=== PATIENT | female | born 1975 | race Caucasian/White ===

== ENCOUNTER → 2017-11-06 09:02 | Outpatient (CLI) | payer OTHER, SELFPAY ==
[2017-11-09 13:31] LABS: HPV Reflexed? NOT INDICATED
== END ==
PROVIDERS: Visit Provider Obstetrics & Gynecology
DX: Z12.4 Encounter for screening for malignant neoplasm of cervix (principal)
CPT/HCPCS: 88175; G0145

== ENCOUNTER → 2017-11-09 06:56 | Outpatient (CLI) | payer OTHER, SELFPAY ==
--- NOTE | 2017-11-09 07:01 | BI_ITS ---
MAMMOGRAPHY - BILATERAL SCREENING REASON FOR EXAM: Female, 42 years old. Routine annual screening examination. PERTINENT HISTORY: Non-contributory. TECHNIQUE: Digital bilateral breast sukhjinder (3D mammographic acquisition) in the CC and MLO projections. 2-D mediolateral oblique (MLO) and craniocaudad (CC) views of both breasts were obtained. CAD: Full Field Digital Mammography with Computer Added Detection was performed. COMPARISON: Oct 05 2016 3:40pm . Sep 30 2015 4:12pm FINDINGS: Breast Composition: The breasts are heterogeneously dense, which may obscure small masses. There are no dominant masses or suspicious calcifications. No other significant abnormalities are identified. BI/SCREENING MAMM (CAD), BILAT IMPRESSION: Stable bilateral screening mammogram. Yearly follow-up mammogram recommended. (A) ASSESSMENT CATEGORY: BIRADS Category 2: Benign. A letter regarding these results will be sent to the patient by the facility within 30 days. Approximately 10% of breast cancers are not detected by mammography. A normal mammogram should not delay biopsy of a clinically suspicious abnormality. [id number] Electronically Signed: Stephie Calderon MD at 15:22 EDT Tel , Service support ,
== END ==
PROVIDERS: Family Provider Family Medicine; PCP Family Medicine; Referring Provider Obstetrics & Gynecology; Visit Provider Obstetrics & Gynecology
DX: Z12.31 Encounter for screening mammogram for malignant neoplasm of breast (principal)
CPT/HCPCS: 77063; 77067

== ENCOUNTER → 2018-11-12 15:29 | Outpatient (CLI) | payer OTHER, SELFPAY ==
--- NOTE | 2018-11-12 15:36 | BI_ITS ---
MAMMOGRAPHY - BILATERAL SCREENING 3-D TOMOSYNTHESIS REASON FOR EXAM: Female, 43 years old. Screening PERTINENT HISTORY: No significant family history. BILATERAL DIGITAL MAMMOGRAM WITH TOMOSYNTHESIS: Mediolateraloblique and craniocaudal views demonstrate no evidence of dominant parenchymal masses. No cluster of microcalcifications or architectural distortion is seen. No evidence of skin thickening is identified There has been no significant change since 11/09/2017 . Breast Density: The breast tissue is heterogeneously dense, which may obscure small masses. CAD was used to assist in final assessment. IMPRESSION: NORMAL MAMMOGRAM BILATERALLY. FINAL ASSESSMENT: BIRAD 1 (NEGATIVE) YEARLY MAMMOGRAM RECOMMENDED Approximately 10% of breast cancers are not detected by mammography. A normal mammogram should not delay biopsy of a clinically suspicious abnormality. Electronically Signed: Siddharth Willis, at 7:52 EDT Tel , Service support , BI/SCREEN MAMM (CAD) W/SANIA VANG
== END ==
PROVIDERS: Family Provider Family Medicine; PCP Family Medicine; Referring Provider Obstetrics & Gynecology; Visit Provider Obstetrics & Gynecology
DX: Z12.31 Encounter for screening mammogram for malignant neoplasm of breast (principal)
CPT/HCPCS: 77063; 77067

== ENCOUNTER → 2019-10-21 06:56 | Outpatient (CLI) | payer OTHER, SELFPAY ==
[2019-10-21 08:35] LABS: T4 Free Direct 0.92 ng/dL (0.76-1.46); Thyroid Stim Hormone (TSH) 3.16 uIU/mL (0.358-3.74)
[2019-10-21 08:52] LABS: Absolute Lymphocyte Count 1.26 X10^3/uL (0.83-4.51); Absolute Neutrophil Count 2.5 X10^3/uL (2.0-7.7); Basophil# 0.03 X10^3/uL; Basophil% 0.7 % (0-1); Eosinophil# 0.17 X10^3/uL; Eosinophils% 3.9 % (0-5); Hematocrit 41.1 % (37-47); Hemoglobin 13.5 g/dL (12.0-15.0); Lymphocyte # 1.26 X10^3/ul (4.0); Lymphocyte % 28.8 % (19-41); Mean Corp Hgb Conc 32.8 g/dL (32-36); Mean Corpuscular Hgb 29.8 pg (27.0-32.0); Mean Corpuscular Volume 90.7 fL (81-99); Monocyte# 0.39 X10^3/uL; Monocyte% 8.9 % (0-10); NRBC Flagged by Analyzer 0 % (0-5); Neutrophil % 57.2 % (47-70); Platelet Count 220 K/mm3 (150-450); RBC Distribution Width CV 12.4 % (11.6-14.6); RBC Distribution Width SD 40.9 fl (35.1-43.9); Red Blood Count 4.53 M/mm3 (4.2-5.4); White Blood Count 4.4 K/mm3 (4.4-11.0)
== END ==
PROVIDERS: PCP Family Medicine; Referring Provider Family Medicine; Visit Provider Family Medicine
DX: R53.83 Other fatigue (principal)
CPT/HCPCS: 36415; 84439; 84443; 85025

== ENCOUNTER 2019-10-23 14:06 | Outpatient (RCR) | payer OTHER, SELFPAY | END 2019-11-06 23:59 | LOC: EMPH 14:06 | PROVIDERS: PCP Family Medicine; Visit Provider Family Medicine Geriatric Medicine | DX: Z11.59 Encounter for screening for other viral diseases (principal) | CPT/HCPCS: 87635; U0003 ==

== ENCOUNTER 2019-12-05 10:56 | Outpatient (RCR) | payer OTHER, SELFPAY ==
[2019-11-21 09:21] VITALS: BMI 29.2
== END 2019-12-07 23:59 ==
LOC: EMPH 10:56
PROVIDERS: PCP Family Medicine; Visit Provider Family Medicine Geriatric Medicine
DX: Z03.818 Encounter for observation for suspected exposure to other biological agents ruled out (principal)
CPT/HCPCS: 87426

== ENCOUNTER → 2019-12-10 07:09 | Outpatient (CLI) | payer OTHER, SELFPAY ==
[2019-11-21 09:21] VITALS: BMI 29.2
--- NOTE | 2019-12-10 07:11 | BI_ITS ---
MAMMOGRAPHY - BILATERAL SCREENING REASON FOR EXAM: Female, 44 years old. Routine annual screening examination. PERTINENT HISTORY: Sister with breast cancer. TECHNIQUE: Digital bilateral breast sania (3D mammographic acquisition) in the CC and MLO projections. 2-D mediolateral oblique (MLO) and craniocaudad (CC) views of both breasts were obtained. CAD: Full Field Digital Mammography with Computer Added Detection was performed. COMPARISON: Comparison is made with prior study dated 11/12/2018 and 11/09/2017. FINDINGS: Breast Composition: The breasts are heterogeneously dense, which may obscure small masses. There are no dominant masses or suspicious calcifications. Stable benign appearing bilateral axillary lymph nodes. No other significant abnormalities are identified. There has been no significant change since the prior study. BI/SCREEN MAMM (CAD) W/SANIA BILAT IMPRESSION: Stable bilateral screening mammogram. Yearly follow-up mammogram recommended. (A) ASSESSMENT CATEGORY: BIRADS Category 2: Benign. A letter regarding these results will be sent to the patient by the facility within 30 days. Approximately 10% of breast cancers are not detected by mammography. A normal mammogram should not delay biopsy of a clinically suspicious abnormality. [id number] Electronically Signed: Brandon Dominguez, at 8:42 EST , Service support ,
== END ==
PROVIDERS: PCP Family Medicine; Referring Provider Student in an Organized Health Care Education/Training Program; Visit Provider Student in an Organized Health Care Education/Training Program
DX: Z12.31 Encounter for screening mammogram for malignant neoplasm of breast (principal)
CPT/HCPCS: 77063; 77067

== ENCOUNTER 2020-01-01 10:05 | Outpatient (RCR) | payer OTHER, SELFPAY ==
[2019-11-21 09:21] VITALS: BMI 29.2
== END 2020-01-06 23:59 ==
LOC: EMPH 10:05
PROVIDERS: PCP Family Medicine; Visit Provider Family Medicine Geriatric Medicine
DX: Z03.818 Encounter for observation for suspected exposure to other biological agents ruled out (principal)
CPT/HCPCS: 87426

== ENCOUNTER 2020-02-05 14:12 | Outpatient (RCR) | payer OTHER, SELFPAY ==
[2019-11-21 09:21] VITALS: BMI 29.2
== END 2020-02-06 23:59 ==
LOC: EMPH 14:12
PROVIDERS: PCP Family Medicine; Referring Provider Family Medicine Geriatric Medicine; Visit Provider Family Medicine Geriatric Medicine
DX: Z03.818 Encounter for observation for suspected exposure to other biological agents ruled out (principal)
CPT/HCPCS: 87426

== ENCOUNTER 2020-03-06 08:31 | Outpatient (RCR) | payer OTHER, SELFPAY ==
[2019-11-21 09:21] VITALS: BMI 29.2
== END 2020-03-08 23:59 ==
LOC: EMPH 08:31
PROVIDERS: PCP Family Medicine; Referring Provider Family Medicine Geriatric Medicine; Visit Provider Family Medicine Geriatric Medicine
DX: Z03.818 Encounter for observation for suspected exposure to other biological agents ruled out (principal)
CPT/HCPCS: 87426

== ENCOUNTER 2020-04-03 09:49 | Outpatient (RCR) | payer OTHER, SELFPAY ==
[2019-11-21 09:21] VITALS: BMI 29.2
== END 2020-04-05 23:59 ==
LOC: EMPH 09:49
PROVIDERS: PCP Family Medicine; Referring Provider Family Medicine Geriatric Medicine; Visit Provider Family Medicine Geriatric Medicine
DX: Z03.818 Encounter for observation for suspected exposure to other biological agents ruled out (principal)
CPT/HCPCS: 87426

== ENCOUNTER 2020-04-29 12:00 | Outpatient (RCR) | payer OTHER, SELFPAY ==
[2019-11-21 09:21] VITALS: BMI 29.2
== END 2020-05-06 23:59 ==
LOC: EMPH 12:00
PROVIDERS: PCP Family Medicine; Referring Provider Family Medicine Geriatric Medicine; Visit Provider Family Medicine Geriatric Medicine
DX: Z03.818 Encounter for observation for suspected exposure to other biological agents ruled out (principal)
CPT/HCPCS: 87426

== ENCOUNTER 2020-05-29 11:12 | Outpatient (RCR) | payer OTHER, SELFPAY ==
[2019-11-21 09:21] VITALS: BMI 29.2
== END 2020-06-05 23:59 ==
LOC: EMPH 11:12
PROVIDERS: PCP Family Medicine; Referring Provider Family Medicine Geriatric Medicine; Visit Provider Family Medicine Geriatric Medicine
DX: Z03.818 Encounter for observation for suspected exposure to other biological agents ruled out (principal)
CPT/HCPCS: 87426

== ENCOUNTER 2020-08-04 11:26 | Outpatient (RCR) | payer OTHER, SELFPAY ==
[2019-11-21 09:21] VITALS: BMI 29.2
== END 2020-08-05 23:59 ==
LOC: EMPH 11:26
PROVIDERS: PCP Family Medicine; Referring Provider Family Medicine Geriatric Medicine; Visit Provider Family Medicine Geriatric Medicine
DX: Z03.818 Encounter for observation for suspected exposure to other biological agents ruled out (principal)
CPT/HCPCS: 87426

== ENCOUNTER 2020-10-06 09:34 | Outpatient (RCR) | payer OTHER, SELFPAY ==
[2019-11-21 09:21] VITALS: BMI 29.2
== END 2020-10-06 23:59 ==
LOC: EMPH 09:34
PROVIDERS: PCP Family Medicine; Referring Provider Family Medicine Geriatric Medicine; Visit Provider Family Medicine Geriatric Medicine
DX: Z03.818 Encounter for observation for suspected exposure to other biological agents ruled out (principal)
CPT/HCPCS: 87426

== ENCOUNTER 2020-10-19 09:22 | Outpatient (RCR) | payer OTHER, SELFPAY ==
[2020-10-07 00:15] VITALS: BMI 29.2
== END 2020-11-05 23:59 ==
LOC: EMPH 09:22
PROVIDERS: PCP Family Medicine; Referring Provider Family Medicine Geriatric Medicine; Visit Provider Family Medicine Geriatric Medicine
DX: Z03.818 Encounter for observation for suspected exposure to other biological agents ruled out (principal)
CPT/HCPCS: 87426

== ENCOUNTER → 2020-11-19 07:29 | Outpatient (CLI) | payer OTHER, SELFPAY ==
[2020-11-19 10:11] LABS: Thyroid Stim Hormone (TSH) 1.96 uIU/mL (0.358-3.74)
== END ==
PROVIDERS: PCP Family Medicine; Referring Provider Family Medicine; Visit Provider Family Medicine
DX: K59.00 Constipation, unspecified (principal)
CPT/HCPCS: 36415; 84443

== ENCOUNTER 2020-12-15 09:31 | Outpatient (RCR) | payer OTHER, SELFPAY ==
[2020-11-06 00:11] VITALS: BMI 29.2
== END 2021-01-05 23:59 ==
LOC: EMPH 09:31
PROVIDERS: PCP Family Medicine; Referring Provider Family Medicine Geriatric Medicine; Visit Provider Family Medicine Geriatric Medicine
DX: Z03.818 Encounter for observation for suspected exposure to other biological agents ruled out (principal)
CPT/HCPCS: 87426

== ENCOUNTER → 2020-12-18 09:03 | Outpatient (CLI) | payer OTHER, SELFPAY ==
--- NOTE | 2020-12-18 09:06 | BI_ITS ---
MAMMOGRAPHY - BILATERAL SCREENING REASON FOR EXAM: Female, 45 years old. Routine annual screening examination. PERTINENT HISTORY: Sister with breast cancer. Aunt with breast cancer. TECHNIQUE: Digital bilateral breast sania (3D mammographic acquisition) in the CC and MLO projections. 2-D mediolateral oblique (MLO) and craniocaudad (CC) views of both breasts were obtained. CAD: Full Field Digital Mammography with Computer Added Detection was performed. COMPARISON: Comparison is made with prior study dated 12/10/2019 and 11/12/2018. FINDINGS: Breast Composition: The breasts are heterogeneously dense, which may obscure small masses. There are no dominant masses or suspicious calcifications. Stable small benign-appearing bilateral axillary lymph nodes. No other significant abnormalities are identified. There has been no significant change since the prior study. BI/SCRN MAMM (CAD)W/SANIA BILAT IMPRESSION: Stable bilateral screening mammogram. Yearly follow-up mammogram recommended. (A) ASSESSMENT CATEGORY: BIRADS Category 2: Benign. A letter regarding these results will be sent to the patient by the facility within 30 days. Approximately 10% of breast cancers are not detected by mammography. A normal mammogram should not delay biopsy of a clinically suspicious abnormality. [id number] Electronically Signed: Brandon Dominguez MD at 10:46 EST , Service support ,
== END ==
PROVIDERS: PCP Family Medicine; Referring Provider Student in an Organized Health Care Education/Training Program; Visit Provider Student in an Organized Health Care Education/Training Program
DX: Z12.31 Encounter for screening mammogram for malignant neoplasm of breast (principal)
CPT/HCPCS: 77063; 77067

== ENCOUNTER → 2021-01-22 | Outpatient (CLI) | payer OTHER, SELFPAY ==
[2021-01-27 22:34] LABS: HPV APTIMA, High Risk Negative (Negative)
== END | disposition home or self-care (01) ==
LOC: LABSPEC 09:59
PROVIDERS: PCP Family Medicine; Visit Provider Student in an Organized Health Care Education/Training Program
DX: Z12.4 Encounter for screening for malignant neoplasm of cervix (principal)
CPT/HCPCS: 87624; 88175; G0145

== ENCOUNTER 2021-02-04 10:03 | Outpatient (RCR) | payer OTHER, SELFPAY ==
[2021-01-06 00:06] VITALS: BMI 29.2
== END 2021-02-05 23:59 ==
LOC: EMPH 10:03
PROVIDERS: PCP Family Medicine; Referring Provider Family Medicine Geriatric Medicine; Visit Provider Family Medicine Geriatric Medicine
DX: Z03.818 Encounter for observation for suspected exposure to other biological agents ruled out (principal)
CPT/HCPCS: 87426; 87635; U0003; U0005

== ENCOUNTER 2021-02-22 12:29 | Outpatient (RCR) | payer OTHER, SELFPAY ==
[2021-02-06 00:10] VITALS: BMI 29.2
== END 2021-03-08 23:59 ==
LOC: EMPH 12:29
PROVIDERS: PCP Family Medicine; Referring Provider Family Medicine Geriatric Medicine; Visit Provider Family Medicine Geriatric Medicine
DX: Z03.818 Encounter for observation for suspected exposure to other biological agents ruled out (principal)
CPT/HCPCS: 87426

== ENCOUNTER 2021-04-05 08:41 | Outpatient (RCR) | payer OTHER, SELFPAY ==
[2021-03-09 00:17] VITALS: BMI 29.2
== END 2021-04-05 23:59 ==
LOC: EMPH 08:41
PROVIDERS: PCP Family Medicine; Referring Provider Family Medicine Geriatric Medicine; Visit Provider Family Medicine Geriatric Medicine
DX: Z03.818 Encounter for observation for suspected exposure to other biological agents ruled out (principal)
CPT/HCPCS: 87426

== ENCOUNTER → 2021-11-09 | Outpatient (CLI) | payer OTHER, SELFPAY ==
--- NOTE | 2021-11-09 12:27 | US_ITS ---
STUDY: THYROID ULTRASOUND REASON FOR EXAM: Female, 46 years old. Palpable nodules TECHNIQUE: Ultrasound evaluation of the thyroid was performed with real-time and static soriano-scale imaging. COMPARISON: None. FINDINGS: RIGHT LOBE: The right lobe of the thyroid gland measures 4.9 x 1.4 x 1.6 cm. There is a heterogeneous echotexture. There are no demonstrated solid, cystic or complex lesions. LEFT LOBE: The left lobe of the thyroid gland measures 4.8 x 1.3 x 1.2 cm. There is a heterogeneous echotexture. Multiple subcentimeter colloid cysts, largest measures 0.5 cm. ISTHMUS: The isthmus measures 0.4 cm. The regional lymph nodes are normal. US/Thyroid IMPRESSION: No suspicious sonographic findings, simple colloid cysts in the left thyroid lobe. No specific follow-up needed Electronically Signed: Saurav Mendoza MD at 15:48 EDT ,
== END | disposition home or self-care (01) ==
LOC: US 12:25
PROVIDERS: PCP Family Medicine; Referring Provider Family Medicine; Visit Provider Family Medicine
DX: E04.1 Nontoxic single thyroid nodule (principal)
CPT/HCPCS: 76536

== ENCOUNTER 2021-12-23 07:18 | Outpatient (CLI) | payer OTHER, SELFPAY ==
--- NOTE | 2021-12-23 07:21 | BI_ITS ---
MAMMOGRAPHY - BILATERAL SCREENING REASON FOR EXAM: Female, 46 years old. Routine annual screening examination. PERTINENT HISTORY: Sister with breast cancer. Aunt with breast cancer. TECHNIQUE: Digital bilateral breast sania (3D mammographic acquisition) in the CC and MLO projections. 2-D mediolateral oblique (MLO) and craniocaudad (CC) views of both breasts were obtained. CAD: Full Field Digital Mammography with Computer Added Detection was performed. COMPARISON: Comparison is made with prior study of 12/18/2020 and 12/10/2019. FINDINGS: Breast Composition: The breasts are heterogeneously dense, which may obscure small masses. There are no dominant masses or suspicious calcifications. Stable small benign-appearing bilateral axillary nodes. No other significant abnormalities are identified. There has been no significant change since the prior study. BI/SCRN MAMM (CAD)W/SANIA BILAT IMPRESSION: Stable bilateral screening mammogram. Yearly follow-up mammogram recommended. (A) ASSESSMENT CATEGORY: BIRADS Category 2: Benign. A letter regarding these results will be sent to the patient by the facility within 30 days. Approximately 10% of breast cancers are not detected by mammography. A normal mammogram should not delay biopsy of a clinically suspicious abnormality. [id number] Electronically Signed: Brandon Dominguez MD at 8:32 EST ,
== END 2021-12-23 23:59 | disposition home or self-care (01) ==
LOC: OPBI 07:19
PROVIDERS: PCP Family Medicine; Visit Provider Family Medicine
DX: Z12.31 Encounter for screening mammogram for malignant neoplasm of breast (principal); Z80.3 Family history of malignant neoplasm of breast
CPT/HCPCS: 77063; 77067

== ENCOUNTER 2022-10-11 11:39 | Emergency (ER) | payer OTHER, SELFPAY ==
[2022-10-11 11:41] VITALS: BP 127/84; PULSE 69; RESP 14; TEMP 37.2; O2SAT 99
[2022-10-11 12:06] VITALS: BP 105/73; BP 114/88; BP 125/81; PULSE 61; PULSE 62; PULSE 68
[2022-10-11 12:12] VITALS: BMI 29.7
--- NOTE | 2022-10-11 12:14 | EX.ED.DYSGE1 ---
HPI History of Present Illness Chief Complaint: Dizziness Detail of Chief Complaint: Dizziness which patient to find is orthostatic symptoms as well as balance Informant: patient and friend Onset/Context/Timing Onset: Today and Hours Context: Sudden Onset Timing: Intermittent Quality: Orthostatic symptoms and balance being off Location: Patient's office Current Severity: Gone Maximum Severity: Moderate Worsened by: Possibly warm environment Relieved by: Not applicable Associated Symptoms Associated Symptoms: Nausea, vomiting, diaphoresis and pallor Narrative Narrative: Patient is a 47-year-old healthy active woman with no past medical history who had 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 She went up to her office. She had episode of lightheadedness with nausea. She then had episode where she was unable to transfer to wheelchair to be brought to the emergency department that was both orthostatic and balance being off. This was associated with tingling her hands numbness vomiting and diaphoresis with pallor Patient denies black or maroon-colored stool. Patient denies urologic symptoms. Patient denies headache, visual, ocular auditory symptoms. Patient denies trouble with speech or swallowing. Patient is a non-smoker. Patient exercises regularly. Patient presently has no symptoms. Prior similar symptoms: No Recent Illness/Hospitalization: No PFSH PFSH Medical History no medical history no medical history Home Medications cyclobenzaprine 10 mg tablet 10 mg PO TID PRN PRN Muscle Spasm #30 tabs 08/06/15 [Rx Last Taken Unknown] Allergy/AdvReac Type Severity Reaction Status Date / Time Penicillins [PCN] Allergy Hives Verified 10/11/22 11:40 Surgical History (Updated 10/11/22 @ 12:11 by Prachi Monge) History of tonsillectomy Social History (Updated 10/11/22 @ 12:[address] Max Hewitt MD) household members: spouse Smoking Status: Never smoker substance use type: does not use ROS ROS ED Constitutional Constitutional ED: Denies chills, fever(s), subjective or sweats Eyes Eyes: Denies blurry vision, change in vision or diplopia ENT ENT ED: Denies ear pain, rhinorrhea or sore throat Cardiovascular Cardiovascular: Denies chest pain, orthopnea, palpitations, paroxysmal nocturnal dyspnea or racing heartbeat Respiratory/Chest Respiratory/Chest: Denies cough, dyspnea on exertion, orthopnea or paroxysmal nocturnal dyspnea Gastrointestinal Gastrointestinal: Reports nausea and vomiting; Denies abdominal pain Genitourinary Genitourinary ED: Denies dysuria or hematuria Musculoskeletal Musculoskeletal: Denies arthralgias, back pain or myalgias Integumentary Denies rash Neurologic Neurologic: Reports paresthesias RUE and LUE; Denies headache(s) or weakness Psychiatric Psychiatric: Denies anxiety Hematologic/Lymphatic Hematologic/Lymphatic: Reports systems reviewed and no addt'l complaints, except as documented EXAM Physical Exam Const Vital Signs: 10/11/22 11:41 10/11/22 12:06 10/11/22 12:09 Temperature 98.9 F Temperature Source Temporal Pulse Rate 69 Pulse Rate [Lying] 61 Pulse Rate [Sitting (for 1 minute prior to obtaining)] 62 Pulse Rate [Standing (for 1 minute prior to obtaining)] 68 Respiratory Rate 14 Respiratory Effort Normal Respiratory Pattern Normal Blood Pressure 127/84 H Blood Pressure [Lying] 125/81 H Blood Pressure [Sitting (for 1 minute prior to obtaining)] 114/88 H Blood Pressure [Standing (for 1 minute prior to obtaining)] 105/73 Blood Pressure Mean 98 Blood Pressure Mean [Lying] 95 Blood Pressure Mean [Sitting (for 1 minute prior to obtaining)] 96 Blood Pressure Mean [Standing (for 1 minute prior to obtaining)] 83 Pulse Ox 99 Oxygen Delivery Method Room Air Positive well nourished and well developed Constitutional Narrative: Orthostatic vital signs are negative. General Appearance ED: well developed and NAD; Negative for cyanotic, diaphoretic or pallor HEENT Reports moist mucous membranes HEENT Narrative: Head is atraumatic normocephalic. Ears normal. Nares patent. Mucosa moist. Eyes PERRL and EOMs intact bilaterally Eyes Narrative: There is no nystagmus. General Eye ED: Negative for pale conjunctiva or scleral icterus Neck no lymphadenopathy, supple and no JVD Chest Wall inspection of chest normal and palpation of chest normal Resp normal respiratory effort and clear to auscultation bilaterally Cardio regular rate, regular rhythm, S1 normal heart sound, S2 normal heart sound and no murmurs GI normal to inspection, nondistended, normoactive bowel sounds, non-tender, non-distended and no masses; Negative for hepatosplenomegaly Extremity normal to inspection Extremity Narrative: Distal pulses are palpable and symmetric General Extremety ED: Negative for edema or tenderness General Extremity: Negative for edema Neuro oriented x3, CN's II-XII intact bilaterally and no sensory deficits noted Neuro Narrative: Gait observed normal. Romberg with eyes open and close negative. The eye askew test was negative. The hint test was negative. [place]-Hallpike maneuver was negative. Sensorium / Orientation: alert Motor Exam: strength 5/5 throughout Psych mental status grossly normal Skin no rashes or lesions noted, no wounds and skin turgor normal General Skin Exam: Negative for jaundice or pallor MDM MDM MDM Narrative Medical decision making narrative: Suspect patient had near syncopal episode due to vasovagal reaction. Uncertain what may have caused her brief vertiginous symptoms. Will obtain CBC to assess H&H. BMP to assess electrolytes and orthostatic vitals were performed and are negative. History & Record Review Additional record(s) reviewed:: Prior outpatient record (Body fluid exposure and pharyngitis) and Prior ED visit Lab Data Attestation: I reviewed the patient's lab results. Lab results narrative: CBC is normal. Basic metabolic panel is normal. Labs: Laboratory Results - last 24 hr 10/11/22 12:25 WBC 11.1 H RBC 4.71 Hgb 14.1 Hct 41.8 MCV 88.7 MCH 29.9 MCHC 33.7 RDW Std Deviation 43.1 RDW Coeff of Lorne 13.2 Plt Count 246 MPV 11.0 Immature Gran % (Auto) 0.400 Neut % (Auto) 86.7 H Lymph % (Auto) 7.9 L [place] % (Auto) 3.8 Eos % (Auto) 0.8 Baso % (Auto) 0.4 Absolute Neuts (auto) 9.7 H Absolute Lymphs (auto) 0.88 Nucleated RBC % 0 Sodium 138 Potassium 4.1 Chloride 103 Carbon Dioxide 27.0 Anion Gap 8 BUN 15 Creatinine 0.82 Estim Creat Clear Calc 70.16 Est GFR (MDRD) Af Amer 97 Est GFR (MDRD) Non-Af 80 BUN/Creatinine Ratio 18.4 Glucose 103 Calcium 8.7 Rhythm Strip Rhythm Strip: Sinus Rhythm Rate: 66 Ectopy: None Treatment and Re-Evaluation :: Patient was reevaluated. She states she feels back to normal. She was informed of results. She will be discharged to home. Discharge Plan Triage Chief Complaint: Dizziness ED Provider: Max Hewitt Dx/Rx/DC Orders Clinical Impression: Vasovagal near syncope, Nausea & vomiting Instructions: ED Near-Fainting- Vagal Reaction Prescriptions: No Action cyclobenzaprine 10 MG tablet 10 mg PO TID PRN PRN (Reason: Muscle Spasm) Qty: 30 1RF Primary Care Provider: Richar Degroot Referrals: Richar Degroot MD [Primary Care Provider] - As Needed Disposition Disposition: Home, Self Care
[2022-10-11 12:35] LABS: Absolute Lymphocyte Count 0.88 X10^3/uL (0.83-4.51); Absolute Neutrophil Count 9.7 X10^3/uL (2.0-7.7); Basophil# 0.04 X10^3/uL; Basophil% 0.4 % (0-1); Eosinophil# 0.09 X10^3/uL; Eosinophils% 0.8 % (0-5); Hematocrit 41.8 % (37-47); Hemoglobin 14.1 g/dL (12.0-15.0); Lymphocyte # 0.88 X10^3/ul (0.83-4.51); Lymphocyte % 7.9 % (19-41); Mean Corp Hgb Conc 33.7 g/dL (32-36); Mean Corpuscular Hgb 29.9 pg (27.0-32.0); Mean Corpuscular Volume 88.7 fL (81-99); Monocyte# 0.42 X10^3/uL; Monocyte% 3.8 % (0-10); NRBC Flagged by Analyzer 0 % (0-5); Neutrophil # 9.66 X10^3/uL (2.7-7.7); Neutrophil % 86.7 % (47-70); Platelet Count 246 K/mm3 (150-450); RBC Distribution Width CV 13.2 % (11.6-14.6); RBC Distribution Width SD 43.1 fl (35.1-43.9); Red Blood Count 4.71 M/mm3 (4.2-5.4); White Blood Count 11.1 K/mm3 (4.4-11.0)
[2022-10-11 12:52] LABS: Anion Gap 8 (5-15); BUN 15 mg/dL (7-18); BUN/Creat Ratio 18.4 RATIO (10-20); Calcium,Total 8.7 mg/dL (8.5-10.1); Chloride 103 mmol/L (98-107); Creatinine, Serum 0.82 mg/dL (0.55-1.02); EST Glomerular Filtration Rate 80 mL/min (>60); Est Glom Filt Rate - Afr Amer 97 mL/min (>60); Estimated Creatinine Clearance 70.16 ml/min; Glucose 103 mg/dL (74-106); Potassium 4.1 mmol/L (3.5-5.1); Sodium Level 138 mmol/L (136-145)
== END 2022-10-11 13:34 | disposition home or self-care (01) ==
PROVIDERS: Emergency Provider Emergency Medicine; PCP Family Medicine; Visit Provider Emergency Medicine
DX: R55 Syncope and collapse (principal); R11.2 Nausea with vomiting, unspecified
CPT/HCPCS: 80048; 85025; 99285; A4216

== ENCOUNTER → 2022-12-27 | Outpatient (CLI) | payer OTHER, SELFPAY ==
--- NOTE | 2022-12-27 07:09 | BI_ITS ---
MAMMOGRAPHY - BILATERAL SCREENING REASON FOR EXAM: Female, 47 years old. Routine annual screening examination. PERTINENT HISTORY: Sister with breast cancer. Aunt with breast cancer. TECHNIQUE: Digital bilateral breast sania (3D mammographic acquisition) in the CC and MLO projections. 2-D mediolateral oblique (MLO) and craniocaudad (CC) views of both breasts were obtained. CAD: Full Field Digital Mammography with Computer Added Detection was performed. COMPARISON: Comparison is made with prior study dated December 23, 2021 and December 18, 2020. FINDINGS: Breast Composition: The breasts are heterogeneously dense, which may obscure small masses. There are no dominant masses or suspicious calcifications. Stable small benign-appearing bilateral axillary lymph nodes. No other significant abnormalities are identified. There has been no significant change since the prior study. BI/SCRN MAMM (CAD)W/SANIA BILAT IMPRESSION: Stable bilateral screening mammogram. Yearly follow-up mammogram recommended. (A) ASSESSMENT CATEGORY: BIRADS Category 2: Benign. A letter regarding these results will be sent to the patient by the facility within 30 days. Approximately 10% of breast cancers are not detected by mammography. A normal mammogram should not delay biopsy of a clinically suspicious abnormality. [id number] Electronically Signed: Brandon Dominguez MD at 10:57 EST ,
== END | disposition home or self-care (01) ==
LOC: OPBI 07:07
PROVIDERS: PCP Family Medicine; Referring Provider Family Medicine; Visit Provider Family Medicine
DX: Z12.31 Encounter for screening mammogram for malignant neoplasm of breast (principal)
CPT/HCPCS: 77063; 77067

== ENCOUNTER → 2023-07-26 | Outpatient (CLI) | payer OTHER, SELFPAY ==
--- NOTE | 2023-07-26 12:50 | US_ITS ---
STUDY: THYROID ULTRASOUND REASON FOR EXAM: Female, 48 years old. enlarged thyroid -- f/u nodule TECHNIQUE: Ultrasound evaluation of the thyroid was performed with real-time and static soriano-scale imaging. COMPARISON: Thyroid ultrasound dated November 09, 2021 FINDINGS: Centimeters RIGHT LOBE: The right lobe of the thyroid gland measures 5.7 x 1.3 x 1.6 centimeters, previously measuring 4.9 x 1.4 x 1.6 cm. There is a heterogeneous echotexture. Diffusely coarsened and micronodular pattern of the thyroid tissue unchanged from the prior study either due to sequela from prior thyroiditis or multinodular goiter LEFT LOBE: The left lobe of the thyroid gland measures 4.5 x 1.5 x 1.3 cm, previously measuring 4.8 x 1.3 x 1.2 cm There is a heterogeneous echotexture. There are no demonstrated solid, cystic or complex lesions. ISTHMUS: The isthmus measures 3 mm. US/Thyroid IMPRESSION: 1. Diffusely coarsened and micronodular pattern of the thyroid tissue unchanged from the prior study either due to sequela from prior thyroiditis or multinodular goiter 2. Interval decrease in size or thyroid gland. 3. TR2: 2 points = not suspicious ACR Thyroid Imaging Reporting and Data System (ACR TI-RADS) Reference: COMPOSITION (choose 1): Cystic or almost completely cystic - 0 points Spongiform- 0 points Mixed cystic and solid - 1 point Solid almost completely solid - 2 points ECHOGENICITY (choose 1): Anechoic space - 0 points Hyperechoic or isoechoic-1 point Hypoechoic-2 points Very hypoechoic-3 points SHAPE (choose 1): : Wider than tall-0 points Taller than wide-3 points MARGINS ( smooth, lobular, ill-defined) ECHOGENIC FOCI (macro or microcalcifications) Scoring and classification TR1: 0 points = benign TR2: 2 points = not suspicious TR3: 3 points = mildly suspicious TR4: 4-6 points = moderately suspicious TR5: ?7 points = highly suspicious Recommendations TR1: no FNA required TR2: no FNA required TR3: ?1.5 cm follow up, ?2.5 cm FNA = follow up: 1, 3 and 5 years TR4: ?1.0 cm follow up, ?1.5 cm FNA = follow up: 1, 2, 3 and 5 years TR5: ?0.5 cm follow up, ?1.0 cm FNA = annual follow up for up to 5 years FNA biopsy is recommended for suspicious lesions (TR3-TR5) with the above size criteria. If there are multiple nodules, the two with the highest ACR TI-RADS scores should be sampled (rather than the two largest), with largest size being used a tie-breaker if there are multiple nodules of the same classification. Electronically Signed: Franklin France MD at 9:43 EDT Reading Location ID and State: [facility] / [place] , Service support ,
== END | disposition home or self-care (01) ==
LOC: US 12:50
PROVIDERS: PCP Internal Medicine; Referring Provider Internal Medicine; Visit Provider Internal Medicine
DX: E04.9 Nontoxic goiter, unspecified (principal)
CPT/HCPCS: 76536

== ENCOUNTER 2023-08-01 07:30 | Day surgery (SDC) | payer OTHER, SELFPAY ==
[2023-08-01] VITALS (8 sets, daily range): BP systolic 79–139; BP diastolic 61–93; PULSE 64–81; RESP 16; TEMP 37.1; O2SAT 94–100; BMI 34.4
--- NOTE | 2023-08-01 07:48 | PRE.ANES_ITS ---
ASA Classification* ASA Classification ASA Classification: 2 Assessment & Plan Anesthesia* Anesthesia Assessment Anesthesia Assessment: Discussed sedation and/or anesthesia options, risks, benefits, and alternatives with patient/parents/legal guardian/POA. Questions invited. The patient/parents/legal guardian/POA seems to understand and agrees to proceed with anesthesia plan. Reviewed the physical assessment, medical history, allergy history and patient home medications list prior to surgery/procedure/anesthetic and documented any changes. Performed airway and anesthesia risk assessments. Anesthesia Type Anesthesia Type: MAC (see written pre anesthesia record for complete assessment) Pre-Assessment Diagnosis/Proposed Procedure Planned Operative Procedure(s): CSCOPE Anesthesia History Anesthesia History - airport security screener: Anesthesia History - airport security screener Hx Hospitalization No 07/27/23 12:43 Any Problems With Anesthesia No 07/27/23 12:43 Cholinesterase deficiency No 07/27/23 12:43 You/Your Family Experience No 07/27/23 12:43 fever (hyperthermia) with Relationship Recent Exposure to Contagious Disease Does patient have nerve No 07/27/23 12:43 stimulator Patient instructed to have device shut off --Does patient have Pacemaker or ICD? When Was Last Pacemaker Check QUESTION #4 FULL TEXT: You/Your Family Experience fever (hyperthermia) with Anesthesia Last Oral Intake Last Oral intake: Last Oral Intake NPO since Meds taken in AM with sips of water? Meds patient instructed to take am of surgery PONV PONV - airport security screener: PONV - airport security screener Female Yes 07/27/23 12:43 HX of Motion Sickness Yes 07/27/23 12:43 HX of N/V After Surgery No 07/27/23 12:43 Non-Smoker Yes 07/27/23 12:43 Duration of Surgery greater No 07/27/23 12:43 than 60 minutes Number of Risk Factors 3 07/27/23 12:43 PONV Score Moderate Risk 07/27/23 12:43 Height & Weight Height & Weight: Anesthesia: Height & Weight Height 5 ft 2 in 07/21/23 12:45 Respiratory Assessment Respiratory Assessment - airport security screener: Respiratory Tract Infection Hx - airport security screener Hx Respiratory Tract Infection No 07/27/23 12:43 STOP Sleep Apnea STOP Sleep Apnea - airport security screener: STOP Sleep Apnea - airport security screener Hx Hypertension No 07/27/23 12:43 Hx Sleep Apnea No 07/27/23 12:43 CPAP BIPAP Do you snore loudly (louder No 07/27/23 12:43 than talking or can be heard Do you often feel tired/ No 07/27/23 12:43 fatigued/ sleepy during daytime? Has anyone observed you stop No 07/27/23 12:43 breathing during sleep? STOP Results Negative 07/27/23 12:43 QUESTION #5 FULL TEXT : Do you snore loudly (louder than talking or can be heard through closed doors)? Tobacco Use History Tobacco Use History - airport security screener: Tobacco Use History - airport security screener Tobacco Use Smoking Status Never smoker 07/27/23 12:43 Hx Tobacco Use No 07/27/23 12:43 Years Smoking Packs Smoked per Day Smoking Cessation Date was within the last 15 years Hx Smoking Cessation Date Hx Smoking Cessation Counseling Hematologic Medial History Hematologic Hx - airport security screener: Hematologic Medical Hx - medical administrator Hx of Blood Transfusion No 07/27/23 12:43 Hx of Transfusion in last 3 No 07/27/23 12:43 Months Date of Last Transfusion (if within last 3 months) Ever experience any problems No 07/27/23 12:43 with transfusion(s)? Specify any problems Hx of Preganancy in last 3 N/A 07/27/23 12:43 Months Nurse Filling Out Transfusion NBUCHER 07/27/23 12:43 & Questions: Date: 07/27/23 07/27/23 12:43 Time: 12:44 07/27/23 12:43 Patient unable to answer at this time (ie. confused, unrespo /Reproduction History /Reproductive History - airport security screener: /Reproductive Hx- airport security screener Hx Now No 07/27/23 12:43 Gestational Age (in weeks): EDC: Hx Hx Para Hx Section SAB No 07/27/23 12:43 Active Medications Active Medications: Current Medications Generic Name Dose Route Start Last Admin Trade Name Freq PRN Reason Stop Dose Admin Lactated Ringer's 1,000 mls @ 15 mls/hr 08/01/23 07:45 IV .Q48H [facility] Anesthesia Focused Assessment* Airway Assessment Mouth opens: >3 cm Mallampati Score: III Focused Labs Anesthesia Preop lab: CBC WBC 4.1 K/mm3 (4.4-11.0) L 10/25/22 06:43 RBC 4.69 M/mm3 (4.2-5.4) 10/25/22 06:43 Hgb 13.7 g/dL (12.0-15.0) 10/25/22 06:43 Hct 42.7 % (37-47) 10/25/22 06:43 Plt Count 214 K/mm3 (150-450) 10/25/22 06:43 CHEMISTRY Potassium 4.3 mmol/L (3.5-5.1) 10/25/22 06:43 Sodium 139 mmol/L (136-145) 10/25/22 06:43 Phosphorus 3.1 mg/dL (2.5-4.9) 10/25/22 06:43 BUN 14 mg/dL (7-18) 10/25/22 06:43 Creatinine 0.73 mg/dL (0.55-1.02) 10/25/22 06:43 Glucose 87 mg/dL (74-106) 10/25/22 06:43 TSH 1.96 uIU/mL (0.358-3.74) 11/19/20 07:35 COAG Review of Systems (Anesthesia) ROS Narrative System reviewed and no additional complaints, except as documented. [facility] Medical History Non-smoker Allergies Home Medications ?Medication ?Instructions ?Recorded ?Last Taken ?Type multivitamin with minerals-folic 1 tab PO DAILY 07/20/23 Unknown History acid 120 mcg chewable tablet (Adult Multivitamin Gummies) Allergy/AdvReac Type Severity Reaction Status Date / Time Penicillins (PCN) Allergy Hives Verified 07/27/23 12:43 Family History Mother Arthritis Father Heart disease Sister Breast cancer 38 Diabetes Surgical History History of wisdom tooth extraction History of tonsillectomy Social History adopted: No household members: spouse current occupational status: employed 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
[2023-08-01] MEDS: Lactated Ringers 1,000 ML 15 ML IV (07:59)
[2023-08-01 08:00] LABS: Internal QC Validated? YES +Cl - CLEAR BKGD; Pregnancy, Urine Negative Negative
--- NOTE | 2023-08-01 08:13 | PCM.HP.STD ---
[facility] - General General Date of Service: 08/01/23 Chief Complaint: Screening for intestinal cancer [facility] Narrative ROSEANNA FULTON, is a 48 F who presents via open access today for screening colonoscopy. She did not have previous one. She otherwise enjoys good health. No bright red blood per rectum or melena. She enjoys good health otherwise. Family history is negative for colon cancer. She is not on any anticoagulants. [facility] Medical History Non-smoker Allergies Home Medications ?Medication ?Instructions ?Recorded ?Last Taken ?Type multivitamin with minerals-folic 1 tab PO DAILY 07/20/23 Unknown History acid 120 mcg chewable tablet (Adult Multivitamin Gummies) Allergy/AdvReac Type Severity Reaction Status Date / Time Penicillins (PCN) Allergy Hives Verified 08/01/23 07:54 Family History Mother Arthritis Father Heart disease Sister Breast cancer 38 Diabetes Surgical History History of wisdom tooth extraction History of tonsillectomy Social History adopted: No household members: spouse current occupational status: employed 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 ROS Constitutional Constitutional: Reports systems reviewed and no addt'l complaints, except as documented Cardiovascular Cardiovascular: Denies chest pain Respiratory/Chest Respiratory/Chest: Denies shortness of breath at rest Gastrointestinal Gastrointestinal: Denies abdominal pain, change in bowel habits, hematochezia or melena Vital Signs Vital Signs Vital Signs: 08/01/23 07:46 08/01/23 07:46 Temperature 98.8 F Temperature Source Temporal Pulse Rate 64 Respiratory Rate 16 Respiratory Pattern Normal Blood Pressure 139/92 H Blood Pressure Mean 107 Blood Pressure Source Monitor Blood Pressure Position Semi-Fowlers Blood Pressure Location Right Arm Pulse Ox 99 Oxygen Delivery Method Room Air Weight Weight: 188 lb 11.451 oz Body Mass Index (BMI) 34.4 Physical Exam Const alert, oriented x3 and no apparent distress General Appearance: cooperative and comfortable Eyes General Eye: normal appearance of both eyes Neck General: normal visual inspection Chest inspection of chest normal Resp Effort and Inspection: able to speak in complete sentences and symmetric chest movement Auscultation: clear to auscultation bilaterally Cardio regular rate and regular rhythm GI soft to palpation, non-tender and non-distended Extremity no calf tenderness Neuro oriented x3 Psych thought process normal Results Lab / Micro Data Labs: Laboratory Results - last 24 hr 08/01/23 07:40: Urine Test Negative Assessment & Plan Assessment/Plan (1) Encounter for screening for malignant neoplasm of colon: PLAN: 48-year-old female presents for screening colonoscopy today with possible biopsy or polypectomy as indicated. She presents via open access. She is aware of the technique, benefit, risk, alternatives. She has had an opportunity to ask and have questions answered. We will proceed as noted. Rodo Rodriguez M.D., F.A.C.S.
--- NOTE | 2023-08-01 08:30 | COLBX_PTH ---
PATIENT: ROSEANNA FULTON LOC: EN U#:[id number] AGE/SX: 48/F ROOM: RE08/01/[address]: Dr. Rodo Rodriguez MD : 1975 BED: DIS: 08/01/2023 SPEC #: [id number] RECD: 08/01/23 10:50 STATUS: SEBAS ANAYA #: [id number] JEANNINE: 08/01/23 08:[address]: Rodo Rodriguez DEPT: SURGICAL PATHOLOGY RECD BY: Helen Harris ENTERED: 08/01/23 12:07 SP TYPE: COLON BX OTHR DR: Dr. Alyssa Sanford MD Tissues: A - Ascending colon B - Sigmoid colon biopsy Procedures: Surgery Specimen Level IV HEADER OPERATION: Colonoscopy with biopsy PRE-OP DIAGNOSIS: Encounter for screening for malignant neoplasm of colon TISSUE SUBMITTED: A- Mid ascending polyp, B- Proximal sigmoid polyp MICROSCOPIC DIAGNOSIS A. Mid ascending colon polyp, biopsy: Tubular adenoma. B. Proximal sigmoid polyp, biopsy: Hyperplastic polyp. [facility] 08/02/2023 MICROSCOPIC DESCRIPTION Slides are reviewed. GROSS DESCRIPTION A. Received in fixative is one container labeled with the patient's name and designated Mid ascending polyp biopsy. The specimen consists of one irregular fragment of light adrian soft tissue that measures 0.5 x 0.4 x 0.1 cm. The specimen is totally submitted in one cassette. B. Received in fixative is one container labeled with the patient's name and designated Proximal sigmoid polyp. The specimen consists of one irregular fragment of light adrian soft tissue that measures 0.5 x 0.5 x 0.1 cm. The specimen is totally submitted in one cassette. [facility] 08/01/2023 TC:1 CPT:70685s1
--- NOTE | 2023-08-01 09:25 | OP.COLON_ITS ---
Patient Name: Gabriela Wilson Procedure Date: 08/01/2023 8:54 AM Date of : 1975 Age: 48 Procedure: Colonoscopy Indications: Screening for colorectal malignant neoplasm Providers: Rodo Rodriguez MD Referring MD: Alyssa Sanford Md Medicines: See the Anesthesia note for documentation of the administered medications Patient Profile: Last Colonoscopy: none. The patient's first colonoscopy is today. Complications: No immediate complications. Procedure: Pre-Anesthesia Assessment: - Prior to the procedure, a History and Physical was performed, and patient medications and allergies were reviewed. The patient's tolerance of previous anesthesia was also reviewed. The risks and benefits of the procedure and the sedation options and risks were discussed with the patient. All questions were answered, and informed consent was obtained. Prior Anticoagulants: The patient has taken no anticoagulant or antiplatelet agents. ASA Grade Assessment: I - A normal, healthy patient. After reviewing the risks and benefits, the patient was deemed in satisfactory condition to undergo the procedure. After I obtained informed consent, the scope was passed under direct vision. Throughout the procedure, the patient's blood pressure, pulse, and oxygen saturations were monitored continuously. The colonoscope was introduced through the anus and advanced to the cecum, identified by appendiceal orifice and ileocecal valve. The colonoscopy was performed without difficulty. The patient tolerated the procedure well. The quality of the bowel preparation was good. The ileocecal valve and the appendiceal orifice were photographed. Scope In: 9:01:14 AM Scope Withdrawal Time 0 hours 13 minutes 39 seconds Scope Out: 9:20:49 AM Total Procedure Duration Time 0 hours 19 minutes 35 seconds Findings: The perianal and digital rectal examinations were normal. A 3 mm polyp was found in the mid ascending colon. The polyp was sessile. The polyp was removed with a cold biopsy forceps. Resection and retrieval were complete. A 3 mm polyp was found in the proximal sigmoid colon. The polyp was sessile. The polyp was removed with a cold biopsy forceps. Resection and retrieval were complete. The exam was otherwise without abnormality. Impression: - One 3 mm polyp in the mid ascending colon, removed with a cold biopsy forceps. Resected and retrieved. - One 3 mm polyp in the proximal sigmoid colon, removed with a cold biopsy forceps. Resected and retrieved. - The examination was otherwise normal. Recommendation: - Discharge patient to home. - Resume previous diet. - Continue present medications. - Repeat colonoscopy in 5 years for surveillance based on pathology results. - Telephone my office for pathology results in 1 week. Procedure Code(s): --- Professional --- 36309, Colonoscopy, flexible; with biopsy, single or multiple Diagnosis Code(s): --- Professional --- Z12.11, Encounter for screening for malignant neoplasm of colon D12.2, Benign neoplasm of ascending colon D12.5, Benign neoplasm of sigmoid colon CPT copyright 2021 [employer]. All rights reserved. The codes documented in this report are preliminary and upon resident care manager review may be revised to meet current compliance requirements. Rodo Rodriguez MD 08/01/2023 9:25:35 AM This report has been signed electronically. Number of Addenda: 0 Note Initiated On: 08/01/2023 8:54 AM
--- NOTE | 2023-08-01 09:26 | OP.CCLET_ITS ---
08/01/2023 Alyssa Sanford Md Re : Colonoscopy procedure for Gabriela Wilson Dear Juvenal This procedure was performed on Tuesday, August 01, 2023. My impressions and recommendations are as follows: Impressions : - One 3 mm polyp in the mid ascending colon, removed with a cold biopsy forceps. Resected and retrieved. - One 3 mm polyp in the proximal sigmoid colon, removed with a cold biopsy forceps. Resected and retrieved. - The examination was otherwise normal. Recommendations : - Discharge patient to home. - Resume previous diet. - Continue present medications. - Repeat colonoscopy in 5 years for surveillance based on pathology results. - Telephone my office for pathology results in 1 week. My findings are described in the full procedure note, which is enclosed. If I can be of further assistance, please feel free to contact me at Doctor phone number(s): Work: . Sincerely, Rodo Rodriguez MD 08/01/2023 9:25:35 AM This report has been signed electronically.
--- NOTE | 2023-08-01 09:27 | PCM.POST.ANE ---
Anesthesia: Postop Eval I Current Vital Signs Temperature: 98.7 F Pulse Rate: 81 Blood Pressure: 79/61 Respiratory Rate: 16 Pulse Ox: 98 Oxygen Delivery Method: Room Air Assessment Airway patent: Yes Spontaneous unlabored respirations: Yes Mental status: Awake and Calm nausea: No Vomiting: No Anesthesia Complication: No Fluid Hydration Crystalloid volume administer (ml): 600 Total IV fluid infused: 600 Progress Note Anesthesia document: Postop Eval 1 completed: Yes
--- NOTE | 2023-08-01 13:04 | PCM.POSTANE2 ---
Anesthesia Postop Eval I Sum Postop Eval Completion status Anesthesia document: Postop Eval 1 completed: Yes Anesthesia Postop Eval I Summary Anesthesia Postop Eval I Summary: Anesthesia Postop Eval I: Assessment Summary Airway patent Yes 08/01/23 09:29 [email or web address] Spontaneous unlabored Yes 08/01/23 09:29 [email or web address] respirations Mental status Awake,Calm 08/01/23 09:29 [email or web address] nausea No 08/01/23 09:29 [email or web address] Vomiting No 08/01/23 09:29 [email or web address] Anesthesia Postop Eval I: Fluid Summary Crystalloid volume administer 600 08/01/23 09:29 [email or web address] (ml) Colloids volume administered ( ml) Blood Product volume administered (ml) Total IV fluid infused 600 08/01/23 09:29 [email or web address] Anesthesia Postop Eval I: Summary Notes Anesthesia Complication No 08/01/23 09:29 [email or web address] Anesthesia Complication Comment: Post-operative progress note Anesthesia: Postop Eval II Evaluation Mental status: Awake and Calm Pain Level: 0 nausea: No Vomiting: No Complications Anesthesia Complication: No
== END 2023-08-01 10:12 | disposition home or self-care (01) ==
LOC: EN 07:30 → AC 07:30
PROVIDERS: Anesthesiology; PCP Internal Medicine; Referring Provider Internal Medicine; Visit Provider Surgery
PROC: 0DJD8ZZ Inspection of Lower Intestinal Tract, Via Natural or Artificial Opening Endoscopic (ICD-10-PCS; CPT 45378; principal; 2023-08-01 08:25)
DX: Z12.11 Encounter for screening for malignant neoplasm of colon (principal); D12.2 Benign neoplasm of ascending colon
CPT/HCPCS: 45380; 81025; 88305; J7120; J2405

== ENCOUNTER → 2023-12-29 | Outpatient (CLI) | payer OTHER, SELFPAY ==
--- NOTE | 2023-12-29 07:12 | BI_ITS ---
MAMMOGRAPHY - BILATERAL SCREENING REASON FOR EXAM: Female, 48 years old. Routine annual screening examination. PERTINENT HISTORY: Sister with breast cancer. Aunt with breast cancer. TECHNIQUE: Digital bilateral breast sania (3D mammographic acquisition) in the CC and MLO projections. 2-D mediolateral oblique (MLO) and craniocaudad (CC) views of both breasts were obtained. CAD: Full Field Digital Mammography with Computer Added Detection was performed. COMPARISON: Comparison is made with prior study dated December 27, 2022 and December 23, 2021. FINDINGS: Breast Composition: The breasts are heterogeneously dense, which may obscure small masses. There are no dominant masses or suspicious calcifications. Stable bilateral fat-containing axillary lymph nodes. No other significant abnormalities are identified. There has been no significant change since the prior study. BI/SCRN MAMM (CAD)W/SANIA BILAT IMPRESSION: Stable bilateral screening mammogram. Yearly follow-up mammogram recommended. (A) ASSESSMENT CATEGORY: BIRADS Category 2: Benign. A letter regarding these results will be sent to the patient by the facility within 30 days. Approximately 10% of breast cancers are not detected by mammography. A normal mammogram should not delay biopsy of a clinically suspicious abnormality. [id number] Electronically Signed: Brandon Dominguez MD at 8:17 EST ,
== END | disposition home or self-care (01) ==
LOC: OPBI 07:10
PROVIDERS: PCP Internal Medicine; Referring Provider Nurse Practitioner Family; Visit Provider Nurse Practitioner Family
DX: Z12.31 Encounter for screening mammogram for malignant neoplasm of breast (principal); Z80.3 Family history of malignant neoplasm of breast
CPT/HCPCS: 77063; 77067

== ENCOUNTER → 2025-01-08 | Outpatient (CLI) | payer OTHER, SELFPAY ==
--- NOTE | 2025-01-08 15:15 | BI_ITS ---
EXAM: SCRN MAMM (CAD)W/SANIA BILAT DATE: 01/08/2025 CLINICAL HISTORY: F, Age 49 y/o , SCREEN FOR BREAST CANCER TECHNIQUE: Procedure Code: [id number] Modality: MG Procedure: SCRN MAMM (CAD)W/SANIA BILAT COMPARISON: Prior exam(s) were compared FINDINGS: TISSUE DENSITY: The breasts are heterogeneously dense, which may obscure small masses. Bilateral Breast Mammographic Findings: No significant masses, calcifications or other abnormalities are identified. BI/SCRN MAMM (CAD)W/SANIA BILAT IMPRESSION: No mammographic evidence of malignancy. OVERALL FINAL ASSESSMENT BI-RADS 1: NEGATIVE. RECOMMENDATION: Routine annual follow-up in 1 Year Additional Recommendation none A letter with findings and recommendations will be mailed to the patient. Reading Location: [id number]
== END | disposition home or self-care (01) ==
PROVIDERS: PCP Internal Medicine; Referring Provider Nurse Practitioner Family; Visit Provider Nurse Practitioner Family
DX: Z12.31 Encounter for screening mammogram for malignant neoplasm of breast (principal)
CPT/HCPCS: 77063; 77067